=== PATIENT | male | born 1990 | race Caucasian/White ===

== ENCOUNTER 2019-04-27 19:45 | Emergency (ER) | payer OTHER ==
[~2019-04-27] VITALS: Ht 185.4 cm; Wt 106.6 kg
[2019-04-27] MEDS ORDERED: FLUORESCEIN (FLUOR-I-STRIPS) 1 MG STRP OU ONE (20:15)
[2019-04-27] MEDS ORDERED: ACETAMINOPHEN 325 MG TABLET PO ONE (20:15)
[2019-04-27] MEDS ORDERED: TETRACAINE 0.5% OPHTH SOLN 4 ML BTL (SINGLE DOSE ONLY) OU ONE (20:15)
[2019-04-27] MEDS ORDERED: RX-NEO/POLYB/HC OTIC (CORTISPORIN) SUSP 10 ML BTL OT STA (20:30)
--- NOTE | 2019-04-27 20:30 | ED EENT ---
History of Present Illness General Chief Complaint: Eye Problems Stated Complaint: EYE PAIN Nursing Triage Note: Patient ambulatory to ER room 7 with complaint of right eye injury. Patient states a piece of elastic hit him in the right eye. He has had pain and redness since this occurred at approximately 17:30 today. History of Present Illness Date Seen by Provider: Apr 27, 2019 Time Seen by Provider: 20:00 Initial Comments 28-year-old male reports being hit lateral to the right eye and possibly sustaining a corneal injury from an elastic strap. He is unsure if anything metal hit his face or eye. No active bleeding or visual changes. Trace headache, no eye pain. Patient reports the eye is extremely irritated. No previous injuries to his eyes, he should wear glasses but he does not. He has not had a recent eye exam. Timing/Duration: this evening Severity: moderate Location: eye (R) Prearrival Treatment: no prearrival treatment Allergies and Home Medications Allergies Coded Allergies: No Known Drug Allergies (Unverified , 04/27/19) Patient Home Medication List Home Medication List Reviewed: Yes Review of Systems Review of Systems Constitutional: no symptoms reported, see HPI Eyes: See HPI; Denies Blindness, Denies Blurred Vision; Drainage; Denies Decreased Acuity; Foreign Body Sensation, Inflammation, Pain; Denies Photophobia, Denies Previous Injury, Denies Vision Changes All Other Systems Reviewed Negative Unless Noted: Yes Past Tajlibi-Ntlbvr-Ojdjqf Hx Past Med/Social Hx: Reviewed Nursing Past Med/Soc Hx Patient Social History Alcohol Use: Occasionally Uses Recreational Drug Use: No Smoking Status: Current Someday Smoker Type Used: Cigarettes 2nd Hand Smoke Exposure: Yes Recent Foreign Travel: No Contact w/Someone Who Travel: No Recent Infectious Disease Expo: No Recent Hopitalizations: No Physical Abuse: No Sexual Abuse: No Mistreated: No Fear: No Immunizations Up To Date PED Vaccines UTD: Yes Seasonal Allergies Seasonal Allergies: No Past Medical History Surgeries: No Respiratory: Yes Asthma Cardiac: No Neurological: No Genitourinary: No Gastrointestinal: No Musculoskeletal: No Endocrine: No HEENT: No Cancer: No Psychosocial: No Integumentary: No Blood Disorders: No Physical Exam Vital Signs Vital Signs - First Documented 04/27/19 19:48 Temp 98.9 Pulse 87 Resp 16 B/P (MAP) 151/96 (114) Pulse Ox 96 O2 Delivery Room Air Height, Weight, BMI Height: 6'1.00" Weight: 235lbs. oz. 106.571676ut; BMI Method:Stated General Appearance: WD/WN, no apparent distress Eyes: right eye conjunctival inflammation, right eye corneal abrasion; left eye normal inspection; bilateral eye PERRL, bilateral eye EOMI (nonpainful) Nose: normal inspection; No active bleeding, No discharge Mouth/Throat: normal mouth inspection, pharynx normal Cardiovascular: normal peripheral pulses, regular rate, rhythm Respiratory: chest non-tender, lungs clear, normal breath sounds Neurologic/Psychiatric: no motor/sensory deficits, alert, normal mood/affect, oriented x 3 Skin: normal color, warm/dry Progress/Results/Core Measures Results/Orders My Orders Orders - JOSE LUIS HURT Acetaminophen Tablet/Caplet (Tylenol T (04/27/19 20:15) Rx-Talon/Poly/Hc Otic Susp (Rx-Cortisporin (04/27/19 20:30) Medications Given in ED Current Medications Medications Dose Ordered Sig/Marino Route Start Time Stop Time Status Last Admin Dose Admin Acetaminophen 650 mg ONCE ONCE PO 04/27/19 20:15 04/27/19 20:19 DC 04/27/19 20:24 650 MG Fluorescein Sodium 1 mg ONCE ONCE OU 04/27/19 20:15 04/27/19 20:16 DC 04/27/19 20:07 1 MG Tetracaine HCl 4 ml ONCE ONCE OU 04/27/19 20:15 04/27/19 20:16 DC 04/27/19 20:08 4 ML Vital Signs/I&O 04/27/19 04/27/19 19:48 20:57 Temp 98.9 98.9 Pulse 87 87 Resp 16 16 B/P (MAP) 151/96 (114) 151/96 (114) Pulse Ox 96 96 O2 Delivery Room Air Blood Pressure Mean: 114 Progress Progress Note : Time: 20:00 Progress Note Patient seen and evaluated, fluorescein and tetracaine to right eye, trace increased fluorescein below lower lid to cornea and conjunctiva compatible with abrasion but no ulcer. Patient reports improvement in symptoms after the tetracaine was applied. No ecchymosis, abrasions or swelling but trace tenderness lateral to the right eye. 2030 patient continues to have full vision from the right eye, pupils are equal and reactive to light with EOMI, non painful. Discharge instructions and return precautions reviewed with patient. He will seek care by bilingual teacher if symptoms are not improving. Departure Impression Primary Impression: Corneal abrasion Qualified Codes: S05.01XA - Injury of conjunctiva and corneal abrasion without foreign body, right eye, initial encounter Disposition: HOME, SELF-CARE Condition: Improved Departure-Patient Inst. Decision time for Depature: 20:30 Referrals: NO,LOCAL PHYSICIAN (PCP/Family) Primary Care Physician Patient Instructions: Eye Contusion (DC), Corneal Abrasion (DC) Add. Discharge Instructions: You may administer 2-3 drops of tetracaine every 4-6 hours, for irritation to the eye. Use prescription eyedrops, 4 drops every 6 hours to right eye. Wear eye protection when at risk for eye injuries. Follow-up at Dr. Amato's if eye symptoms are not improving or vision changes occur. You may administer Tylenol 650 mg alternating with ibuprofen 600 mg every 4 hours for pain or fever. Return to emergency department for new, urgent health care needs. All discharge instructions reviewed with patient and/or family. Voiced understanding. JOSE LUIS HURT Apr 27, 2019 20:30
[2019-04-27 20:57] VITALS: BP 151/96
== END 2019-04-27 21:02 | disposition home or self-care (01) ==
LOC: ER 19:47
DX: S05.01XA Injury of conjunctiva and corneal abrasion without foreign body, right eye, initial encounter (principal); J45.909 Unspecified asthma, uncomplicated; F17.210 Nicotine dependence, cigarettes, uncomplicated; W22.8XXA Striking against or struck by other objects, initial encounter
CPT/HCPCS: 99283